=== PATIENT | male | born 1950 | race Caucasian/White ===

== ENCOUNTER 2023-04-16 16:46 | Emergency (ER) | payer MEDICARE, SELFPAY ==
--- NOTE | ~2023-04-16 | XR_ITS ---
EXAM: XR humerus RT DATE: 04/16/2023 17:58 HISTORY: pain, injury FELL FROM HEIGHT ONTO RT ARM . COMPARISON: None available. FINDINGS: Normal mineralization. No fracture or dislocation. No lytic or blastic lesion. Degenerativ e change in the shoulder and elbow. No erosion or periosteal change. Soft tissues within normal limit s. IMPRESSION: No acute osseous finding in the right humerus. Reviewed, dictated and finalized at location K.
--- NOTE | ~2023-04-16 | XR_ITS ---
EXAM: XR shoulder RT min 2V DATE: 04/16/2023 17:58 HISTORY: pain, injury FELL FROM HEIGHT ONTO RT ARM . COMPARISON: None available. FINDINGS: Normal mineralization. No fracture or dislocation. No lytic or blastic lesion. Mild polyar ticular osteoarthritis. No erosion or periosteal change. Soft tissues within normal limits. IMPRESSION: No acute osseous finding in the right shoulder. Reviewed, dictated and finalized at location K.
[2023-04-16 16:49] VITALS: BP 170/98; PULSE 70; RESP 14; TEMP 36.7; O2SAT 98
--- NOTE | 2023-04-16 17:38 | ED.UPPEXIN ---
HPI - Extremity Injury (Upper) General Chief Complaint: Extremity Injury, Upper Stated Complaint: right shoulder injury Time Seen by Provider: 04/16/23 17:09 History of Present Illness HPI narrative: 73-year-old male reports for evaluation for right shoulder pain after fall that occurred just prior to arrival. Patient states he was working on his bobcat, stepped off the bobcat and missed a step and try to catch himself with his right arm. He is unsure if he hit his right arm on the ground or bobcat or if he strained it while trying to catch himself during the fall. Since the injury he has not been able to extend his right arm and is reporting pain overlying his deltoid and medial humerus. Patient also states he bumped his head on the door of the bobcat. He did not lose consciousness, does not have a headache, no vision changes, focal numbness or weakness, difficulty walking, dizziness. Denies neck pain. States he took 2 little blue pills for pain prior to arrival with relief. Related Data Allergies Allergy/AdvReac Type Severity Reaction Status Date / Time No Known Allergies Allergy Verified 04/16/23 18:51 Review of Systems Review of Systems: CONSTITUTIONAL: Denies fever, chills EYES: Denies visual changes, redness, or discharge. ENT: Denies rhinorrhea, congestion, sore throat, or otalgia. CARDIOVASCULAR: Denies chest pain, palpitations, or edema. RESPIRATORY: Denies cough or dyspnea. GASTROINTESTINAL: Denies abdominal pain, nausea, vomiting, or diarrhea. GENITOURINARY: Denies dysuria or hematuria. SKIN: Denies rash or itching. MUSCULOSKELETAL: See HPI NEUROLOGIC: Denies headache, numbness, dizziness, or weakness. PSYCHIATRIC: Denies anxiety or depression. Exam Narrative: GENERAL: Well-appearing, in no acute distress. Patient resting comfortably in exam chair. He is pleasant and conversational HEAD: Normocephalic EYES: PERRLA, EOMI ENT: Nares clear. Mucous membranes moist. Oropharynx without tonsillar hypertrophy exudate or other lesions. NECK: Supple. No nuchal rigidity. CHEST: No respiratory distress. Clear to auscultation, no adventitious breath sounds. HEART: Regular rate and rhythm. No murmur heard. Normal peripheral pulses. ABDOMEN: Soft, nontender, normal active bowel sounds. EXTREMITIES: RUE: No tenderness to glenohumeral joint, posterior shoulder, clavicle, humerus, or remainder of upper extremity. Limited active flexion of right arm, unable to evaluate empty can sign. Full active and passive abduction and internal rotation. No tenderness to the head of the biceps tendon. No obvious Kenan deformity. Median, radial and ulnar nerves intact. Sensation intact throughout. [facility] strength 5/5. SKIN: Warm, dry, no rash. NEURO: No focal deficits. Alert and oriented x3. Cranial nerves II through XII intact. Strength 5/5 in BUE and BLE. Sensation intact throughout. Ambulatory without difficulty. No ataxia, dysarthria or aphasia. PSYCH: Normal mood and affect. Course Vital Signs Vital signs: Vital Signs Temperature 98.1 F 04/16/23 16:49 Pulse Rate 70 04/16/23 16:49 Respiratory Rate 14 04/16/23 16:49 Blood Pressure 170/98 H 04/16/23 16:49 Pulse Oximetry 98 04/16/23 16:49 Oxygen Delivery Room Air 04/16/23 16:49 Temperature 98.1 F 04/16/23 16:49 Pulse Rate 65 04/16/23 19:01 Respiratory Rate 18 04/16/23 19:01 Blood Pressure 152/87 H 04/16/23 19:01 Pulse Oximetry 96 04/16/23 19:01 Oxygen Delivery Room Air 04/16/23 16:49 MDM - Extremity Injury (Upper) MDM Narrative Medical decision making narrative: 73-year-old male reports for evaluation for right shoulder pain after fall that occurred just prior to arrival after he missed a step stepping off of his bobcat and injured his right shoulder, he does report bumping his head, denies LOC. Exam significant for decreased flexion of right arm. He is neurovascularly intact. X-rays of shoulder and humerus show no a
[2023-04-16] MEDS: HYDROcodone/acetaminophen (*CRX) 5-325 MG TABLET 1 TAB PO (18:52)
[2023-04-16 19:01] VITALS: BP 152/87; PULSE 65; RESP 18; O2SAT 96
== END 2023-04-16 19:04 | disposition home or self-care (01) ==
PROVIDERS: Emergency Provider Physician Assistant; PCP Internal Medicine
DX: S46.911A Strain of unspecified muscle, fascia and tendon at shoulder and upper arm level, right arm, initial encounter (principal); V84.5XXA Driver of special agricultural vehicle injured in nontraffic accident, initial encounter
CPT/HCPCS: 73030; 73060; 99283; A9270